=== PATIENT | female | born 1975 | race Caucasian/White ===

== ENCOUNTER 2016-09-26 22:44 | Emergency (ER) | payer OTHER ==
[~2016-09-26 22:44] MED LIST: ACETAMINOPHEN325 MG PO; ACID REFLUX MED; ACYCLOVIR IV; AL-MAG HYDROX-S30 M1 PO; ALBUTEROL SULF8.5 G1; ALPRAZOLAM PO; AMITRIPTYLINE H75 MG PO; AMITRYPTYLINE PO; ATIVAN PO; ATIVAN0.5 MG PO; AZITHROMYCIN250 MG PO; BACTRIM DS TABL1 TA1 PO; BUSPAR PO; CELEXA20 MG PO; CIPRO PO; COMPAZINE10 M1 PO; DEPAKOTE DR PO; DESCOVY 200-251 EACH PO; DESYREL100 MG PO; DICLOFENAC PO; EC-NAPROSYN500 MG PO; FEROSUL325 ( 651; FIORICET 50-321 EACH; FIORICET 50-321 EACH PO; FIORICET W/CODE1 CAP PO; FLEXERIL10 M1 PO; FLEXERIL10 MG; FLEXERIL10 MG PO; HIV MED; HYDROCODON-ACE1 EAC4 PO; IBUPROFEN PO; IMITREX20 MG/SPRA NS; IRON1 TA1 PO; ISONIAZID300 MG PO; K-DUR20 ME1 PO; KEFLEX500 M1 PO; KEPPRA500 M1 PO; KEPPRA500 M2 PO; LOMOTIL TABLET1 TAB PO; LORTAB 10-5001 EACH PO; LORTAB 101 TAB 10/5 PO; LORTAB 5/500 TA1 TA2; LORTAB 7.5-5001 TAB PO; MEDROL4 MG/DOSE- PO; METRONIDAZOLE PO; MILK OF MAGNESIA PO; MOBIC PO; NAPROSYN500 MG PO; NAPROXEN PO; NAPROXEN500 M1 PO; NEURONTIN PO; NEURONTIN100 MG PO; NORVIR100 M1 PO; NORVIR100 MG PO; NYSTATIN5 ML PO; PAIN CREAM; PHENERGAN PO; PHENERGAN25 M1 PO; PHENERGAN25 MG PO; POTASSIUM99 M2 PO; PREDNISONE PO; PRILOSEC PO; REYATAZ300 MG PO; ROXICODONE PO; TIVICAY50 MG PO; TOPAMAX PO; TOPAMAX50 MG PO; TREXIMET 85-5001 TAB PO; TRUVADA 200 MG1 EACH PO; TRUVADA TABLET1 TA1 PO; TYLENOL #3 PO; ULTRAM PO; VICODIN 5/1 TAB 5/50 PO; VISTARIL PO; VISTARIL50 MG PO; VITAMIN B650 M1 PO; VITAMIN B650 M2 PO; VOLTAREN50 MG PO; VOLTAREN75 MG PO; ZANAFLEX4 M1 PO; ZANTAC PO; ZITHROMAX600 MG PO; ZOFRAN PO; ZOFRANODT PO; ZOLOFT100 MG PO; ZOLOFT50 MG PO; [UNRECOGNIZED DRUG - OTHER] PO; [UNRECOGNIZED DRUG - OTHER] PO
== END 2016-09-27 00:03 | disposition home or self-care (01) ==
LOC: SED 22:44
DX: F11.129 Opioid abuse with intoxication, unspecified (principal); F12.129 Cannabis abuse with intoxication, unspecified; Z88.8 Allergy status to other drugs, medicaments and biological substances
CPT/HCPCS: 99283

== ENCOUNTER 2017-01-21 20:47 | Emergency (ER) | payer OTHER ==
[~2017-01-21] VITALS: Ht 154.9 cm; Wt 62.1 kg
[2017-01-21] MEDS ORDERED: TIVICAY50 MG (20:53)
[2017-01-21] MEDS ORDERED: DESCOVY 200-251 EACH (20:53)
== END 2017-01-21 22:14 | disposition home or self-care (01) ==
LOC: SED 20:47
DX: M54.16 Radiculopathy, lumbar region (principal); F41.9 Anxiety disorder, unspecified; G43.909 Migraine, unspecified, not intractable, without status migrainosus; J45.909 Unspecified asthma, uncomplicated; Z21 Asymptomatic human immunodeficiency virus [HIV] infection status
CPT/HCPCS: 94640; 96372; 96374; 99283; J1040; J1885

== ENCOUNTER 2017-01-23 01:15 | Emergency (ER) | payer OTHER ==
[~2017-01-23] VITALS: Ht 154.9 cm; Wt 61.7 kg
--- NOTE | ~2017-01-23 | CT4 ---
[facility] A Service of [facility] RADIOLOGY TEXT RESULTS PATIENT: SHARAD GARCIA LOCATION: SED : 73 UNIT #: [id number] AGE: [address]: Feliciano Jin MD SEX: F ORDER DR: [id number] [place] [id number] E MR#: [id number] Acc #: [id number] NAME: SHARAD GARCIA : 1975 SEX: F STUDY DATE/TIME: 01/23/2017 3:16 UNIT: SED ROOM: STUDY DESCRIPTION: CT Abd and Pelv Wo Cont Attending Physician: Feliciano Jin M.D. Ordering Physician: Feliciano Jin M.D. Primary Care Physician: No Primary Care Physician MEDICAL IMAGING REPORT This report is preliminary unless electronic signature is present. EXAM CT abdomen and pelvis without contrast. INDICATIONS Bilateral flank pain and hematuria for the past [address] of the abdomen and pelvis. This CT exam was performed with one or more of the following radiation dose reduction techniques: automatic exposure control, adjustment of mA and/or kV according to patient size, and iterative reconstruction. COMPARISON 04/23/2016 FINDINGS Abdomen without contrast: Included lung bases are clear. Liver, spleen, kidneys, adrenal glands, pancreas unremarkable. Previous cholecystectomy. Bowel loops nondilated. Moderate colonic stool burden. No radiodense urinary system calculus or hydronephrosis. Pelvis without contrast: No radiodense bladder calculus. No pelvic mass. No aggressive appearing bone lesion. IMPRESSION No acute findings. No radiodense urinary system calculus or hydronephrosis. Dictated by... Gerald Pires M.D. [facility] A Service of [facility] RADIOLOGY TEXT RESULTS PATIENT: SHARAD GARCIA LOCATION: SED : 73 UNIT #: [id number] AGE: [address]: Feliciano Jin MD SEX: F ORDER DR: THIS IS AN ELECTRONICALLY VERIFIED REPORT Gerald Pires M.D. at 01/27/2017 8:30 AM JOE/cecilia TD: 01/23/2017 07:55 JOB #: [id number] MEDICAL IMAGING REPORT Page 1 of 1
[~2017-01-23 01:15] MED LIST changes: +DESCOVY 200-251 EACH; +TIVICAY50 MG
[2017-01-23] MEDS ORDERED: PREDNISONE (02:00)
[2017-01-23] MEDS ORDERED: MOTRIN600 M1 PO (02:00)
[2017-01-23 02:32] LABS: URINE SOURCE CLEAN CATCH
[2017-01-23 02:39] LABS: URINE APPEARANCE CLEAR; URINE BILIRUBIN NEG (NEG); URINE BLOOD 3+ (NEG); URINE COLOR YELLOW; URINE GLUCOSE NEG (NORM); URINE KETONE NEG (NEG); URINE LEUKOCYTE ESTERASE TRACE (NEG); URINE NITRATE NEG (NEG); URINE PH 5.5 (5-8); URINE PROTEIN NEG (NEG); URINE SPECIFIC GRAVITY <=1.005 (1.003-1.035); URINE UROBILINOGEN 0.2 MG/DL (NORM)
[2017-01-23 02:41] LABS: MICRO INDICATED? YES
[2017-01-23 02:42] LABS: CULTURE INDICATED? NO; URINE BACTERIA NEG (NEG); URINE SQUAMOUS EPITHELIAL CELL OCCAS /[HPF]
== END 2017-01-23 04:00 | disposition home or self-care (01) ==
LOC: SED 01:15
DX: M54.5 Low back pain (principal); G89.29 Other chronic pain; F41.9 Anxiety disorder, unspecified; G43.909 Migraine, unspecified, not intractable, without status migrainosus; Z88.8 Allergy status to other drugs, medicaments and biological substances; Z79.899 Other long term (current) drug therapy
CPT/HCPCS: 74176; 81003; 84703; 99284

== ENCOUNTER 2017-03-16 19:06 | Emergency (ER) | payer OTHER ==
[~2017-03-16] VITALS: Ht 154.9 cm; Wt 62.1 kg
[~2017-03-16 19:06] MED LIST changes: +MOTRIN600 M1 PO; +PREDNISONE
== END 2017-03-16 20:48 | disposition home or self-care (01) ==
LOC: SED 19:06
DX: G89.29 Other chronic pain (principal); M54.5 Low back pain; K21.9 Gastro-esophageal reflux disease without esophagitis; Z90.49 Acquired absence of other specified parts of digestive tract; Z88.8 Allergy status to other drugs, medicaments and biological substances; Z79.899 Other long term (current) drug therapy
CPT/HCPCS: 96372; 99283; J2920